=== PATIENT | male | born 1970 | race Caucasian/White ===

== ENCOUNTER 2017-10-29 13:22 | Emergency (ER) | payer SELFPAY ==
[~2017-10-29] VITALS: Ht 162.6 cm; Wt 79.8 kg
[2017-10-29 13:32] VITALS: BP 132/92
[2017-10-29] MEDS ORDERED: METF500T6 PO (13:38)
[2017-10-29] MEDS ORDERED: CEPH500 PO (13:38)
[2017-10-29] MEDS ORDERED: LOVA20 PO (13:38)
[2017-10-29] MEDS ORDERED: GLIP5 PO (13:38)
[2017-10-29 13:43] LABS: GLUCOSE,POINT OF CARE 280 MG/DL (70-110)
== END 2017-10-29 18:12 | disposition left against medical advice (07) ==
LOC: EMS 13:24
DX: Z53.21 Procedure and treatment not carried out due to patient leaving prior to being seen by health care provider (principal); R73.9 Hyperglycemia, unspecified